=== PATIENT | male | born 1960 | race Asian ===

== ENCOUNTER 2022-09-25 19:10 | Emergency (ER) | payer OTHER ==
[~2022-09-25] VITALS: Ht 165.1 cm; Wt 72.6 kg
[2022-09-25] MEDS ORDERED: ZYRTEC10 MG PO (19:19)
[2022-09-25] MEDS ORDERED: COZAAR25 MG PO (19:20)
== END 2022-09-25 20:28 | disposition home or self-care (01) ==
LOC: ED 19:10
DX: J30.2 Other seasonal allergic rhinitis (principal); I10 Essential (primary) hypertension; Z79.899 Other long term (current) drug therapy
CPT/HCPCS: 96372; 99283; J1100; J1200

== ENCOUNTER 2022-09-28 03:05 | Emergency (ER) | payer OTHER ==
[~2022-09-28] VITALS: Ht 165.1 cm; Wt 80.5 kg
[~2022-09-28 03:05] MED LIST: COZAAR25 MG PO; ZYRTEC10 MG PO
--- OUTSIDE RECORDS SUMMARY | 2022-09-28 03:13 | XMS ---
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 [facility] has no Care Guidelines for this patient. Cristian VISIT COUNT (12 MO.) [facility] T[facility] 2 NOTE: Visits indicate total known visits. ED/C VISIT TRACKING (12 MO.) 09/28/2022 03:06 [facility] TYPE: Emergency COMPLAINT: - LT SIDED NUMBNESS 09/25/2022 19:11 [facility] [place] TYPE: Emergency COMPLAINT: - ALLERGIC REACTION DIAGNOSES: - Essential (primary) hypertension - Other grinder gear (current) drug therapy - Other seasonal allergic rhinitis INPATIENT VISIT TRACKING (12 MO.) No inpatient visits to display in this time frame [id number]
[2022-09-28] MEDS ORDERED: LIPITOR40 MG PO (06:02)
[2022-09-28] MEDS ORDERED: PLAVIX75 MG PO (06:02)
[2022-09-28] MEDS ORDERED: LO-DOSE ASPIRIN81 MG PO (06:02)
--- NOTE | 2022-09-29 21:19 | EKG ---
[facility] [address] [place] [address] Signed Sinus rhythm with premature atrial complexes with aberrant conduction Minimal voltage criteria for LVH, may be normal variant ( R in aVL ) Borderline ECG No previous ECGs available Confirmed by Jayna Molina MD () on 09/29/2022 9:18:51 PM Electronically Signed By: JAYNA MOLINA MD 09/29/22 2119 PATIENT NAME: HAROON BAEZ Electrocardiogram DATE OF : 60 PHYSICIAN: JAYNA MOLINA MD REPORT #: [id number] REPORT IS CONFIDENTIAL AND NOT TO BE RELEASED WITHOUT AUTHORIZATION
== END 2022-09-28 08:50 | disposition home or self-care (01) ==
LOC: ED 03:05
DX: G45.9 Transient cerebral ischemic attack, unspecified (principal); I10 Essential (primary) hypertension; Z79.899 Other long term (current) drug therapy
CPT/HCPCS: 36415; 70450; 70496; 70498; 71045; 80053; 80061; 81003; 83036; 83735; 84443; 84484; 85025; 93005; 93010; 93306; 99285-25; A9270; G0480; Q9967

== ENCOUNTER 2022-09-28 10:18 | Emergency (ER) | payer OTHER ==
[~2022-09-28] VITALS: Ht 165.1 cm; Wt 80.5 kg
[~2022-09-28 10:18] MED LIST changes: +LIPITOR40 MG PO; +LO-DOSE ASPIRIN81 MG PO; +PLAVIX75 MG PO
--- OUTSIDE RECORDS SUMMARY | 2022-09-28 10:27 | XMS ---
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 - 2 Visits in 30 Days CARE PROVIDERS There are no care providers on record at this time. [facility] has no Care Guidelines for this patient. Cristian VISIT COUNT (12 MO.) [address] [facility] TOTAL 3 NOTE: Visits indicate total known visits. ED/C VISIT TRACKING (12 MO.) 09/28/2022 10:[address] [facility] [place] TYPE: Emergency COMPLAINT: - L ARM TIGHT/TINGLY 09/28/2022 03:06 [facility] [place] TYPE: Emergency COMPLAINT: - LT SIDED NUMBNESS 09/25/2022 19:11 [facility] [place] TYPE: Emergency COMPLAINT: - ALLERGIC REACTION DIAGNOSES: - Other seasonal allergic rhinitis - Essential (primary) hypertension - Other joint terminal attack controller (current) drug therapy INPATIENT VISIT TRACKING (12 MO.) No inpatient visits to display in this time frame [id number]
== END 2022-09-28 20:33 | disposition short-term general hospital (02) ==
LOC: ED 10:18
DX: I63.81 Other cerebral infarction due to occlusion or stenosis of small artery (principal); R20.0 Anesthesia of skin; I10 Essential (primary) hypertension; J30.2 Other seasonal allergic rhinitis; R29.700 NIHSS score 0; Z79.899 Other long term (current) drug therapy; Z20.822 Contact with and (suspected) exposure to COVID-19
CPT/HCPCS: 70450; 70551; 87502; 96361; 96374; 99285-25; C9803; J2060; J7030; Q3014; U0003